=== PATIENT | female | born 1970 | race African-American/Black ===

== ENCOUNTER 2018-08-15 02:33 | Emergency (ER) | payer SELFPAY ==
[2018-08-15] MEDS ORDERED: Dexamethasone 10 MG/ML VIAL ONE (03:05)
[2018-08-15] MEDS ORDERED: Ketorolac Tromethamine 60 MG/2 ML VIAL ONE (03:05)
--- NOTE | 2018-08-15 08:01 | RAD ---
LEFT FOOT THREE VIEWS: History: Left foot pain. FINDINGS/IMPRESSION: No fracture or dislocation or bony destruction is seen. A posterior calcaneal spur is present. POS: PHANI
== END 2018-08-15 03:50 | disposition home or self-care (01) ==
LOC: ERS 02:33
DX: M79.672 Pain in left foot (principal); I10 Essential (primary) hypertension; Z79.899 Other long term (current) drug therapy
CPT/HCPCS: 96372; J1100; J1885

== ENCOUNTER 2019-04-07 20:50 | Emergency (ER) | payer OTHER, SELFPAY ==
[~2019-04-07 20:50] MED LIST: ISOVUE-370 76%-LOCM 1 ML ONE
[2019-04-07] MEDS ORDERED: Ketorolac Tromethamine 30 MG/ML VIAL ONE (21:03)
[2019-04-07 21:13] LABS: #Basophils 0.1 thou/uL (0.0-0.2); #Eosinphils 0.2 thou/uL (0.0-0.7); #Lymphocytes 2.9 thou/uL (1.20-3.40); #Monocytes 0.7 thou/uL (0.11-0.59); #Neutrophils 6.9 thou/uL (1.40-6.50); %Basophils 0.8 % (0.0-1.0); %Eosinophils 2.3 % (0.0-10.0); %Lymphocytes 26.5 % (21.0-51.0); %Monocytes 6.2 % (0.0-10.0); %Neutrophils 64.3 % (42.0-75.0); Hemoglobin 12.3 g/dL (12.0-16.0); Mean Corpuscular HGB CONC 33.9 g/dL (32.0-36.0); Mean Corpuscular Volume 85.6 fL (78.0-98.0); Mean Platelet Volume 9.1 fL (7.4-10.4); Platelet Count 209 thou/uL (130-400); RBC Distribution Width 12.3 % (11.5-14.5); Red Blood Cell (RBC) Count 4.24 mill/uL (4.20-5.40); White Blood Cell (WBC) Count 10.8 thou/uL (4.8-10.8)
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
[2019-04-07 21:33] LABS: ALT (SGPT) 11 U/L (8-55); AST (SGOT) 14 U/L (5-34); Alkaline Phosphatase 72 U/L (40-110); Anion Gap 14 mmol/L (10-20); BUN (Urea Nitrogen) 14 mg/dL (7.0-18.7); Bilirubin, Total 0.5 mg/dL (0.2-1.2); Calc. Creatinine Clearance 0 mL/min (70-130); Calcium 8.7 mg/dL (7.8-10.44); Carbon Dioxide 24 mmol/L (22-29); Chloride 102 mmol/L (98-107); Estimated GFR-MDRD 62; Globulin 3.1 g/dL (2.4-3.5); Glucose 100 mg/dL (70-105); Potassium 3.7 mmol/L (3.5-5.1); Protein, Total 7.1 g/dL (6.0-8.3); Sodium 136 mmol/L (136-145)
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
== END 2019-04-07 22:43 | disposition home or self-care (01) ==
LOC: ERS 20:50
DX: S29.012A Strain of muscle and tendon of back wall of thorax, initial encounter (principal); I10 Essential (primary) hypertension; Z79.899 Other long term (current) drug therapy; V49.9XXA Car occupant (driver) (passenger) injured in unspecified traffic accident, initial encounter
CPT/HCPCS: 70450; 71260; 72125; 74177; 80053; 85025; G0390; J1885; Q9966

== ENCOUNTER 2019-04-09 22:12 | Emergency (ER) | payer SELFPAY ==
[2019-04-09] MEDS ORDERED: Fentanyl 100 MCG/2 ML VIAL ONE (22:40)
[2019-04-09] MEDS ORDERED: Ketorolac Tromethamine 60 MG/2 ML VIAL ONE (22:40)
--- NOTE | 2019-04-09 23:03 | RAD ---
RADIOGRAPH CHEST 1 VIEW: DATE: 04/09/2019 HISTORY: 48-year-old female with cough FINDINGS: There are no airspace densities, pulmonary edema, pneumothorax, or cardiomegaly. The lateral costophr enic angles are sharp. IMPRESSION: No acute cardiopulmonary findings.
== END 2019-04-09 23:29 | disposition home or self-care (01) ==
LOC: ERS 22:12
DX: G89.11 Acute pain due to trauma (principal); M54.2 Cervicalgia; I10 Essential (primary) hypertension
CPT/HCPCS: 71045; 96372; J1885; J3010